=== PATIENT | male | born 1985 | race Caucasian/White ===

== ENCOUNTER 2021-04-17 00:47 | Inpatient (IN) | payer MEDICAID ==
[~2021-04-17] VITALS: Ht 172.7 cm; Wt 83.4 kg
[~2021-04-17 00:47] MED LIST: INSLAN SQ; LISI-892 PO
[2021-04-17] MEDS ORDERED: 0.9% SODIUM CHLORIDE 10 ML SYRINGE IVP PRN (01:15)
[2021-04-17] MEDS ORDERED: SODIUM CHLORIDE 0.9% 2,000 ML IV ONE (01:15)
[2021-04-17 01:17] LABS: BASOPHILS % (AUTO) 0.7 % (0.0-2.0); EOSINOPHILS % (AUTO) 1.2 % (1.0-6.0); HEMATOCRIT 39.9 % (41-53); HEMOGLOBIN 13.1 g/dL (13.5-17.5); LYMPHOCYTES # (AUTO) 1.9 K/uL (1.0-4.8); LYMPHOCYTES % (AUTO) 22.9 % (22.0-44.0); MEAN CORPUSCULAR HEMOGLOBIN 29.2 pg (26.0-34.0); MEAN CORPUSCULAR HGB CONC 32.8 G/dL (31.0-37.0); MEAN CORPUSCULAR VOLUME 89 fL (80-100); MONOCYTES # (AUTO) 0.5 K/uL (0.1-1.0); MONOCYTES % (AUTO) 6.3 % (2.0-9.0); NEUTROPHILS # (AUTO) 5.8 K/uL (1.8-7.7); NEUTROPHILS % (AUTO) 68.9 % (40.0-70.0); PLATELET COUNT (AUTO) 248 K/uL (150-450); RED BLOOD CELL COUNT(AUTO) 4.48 MIL/uL (4.50-5.90); RED CELL DISTRIBUTION WIDTH 13.4 % (11.5-14.5)
[2021-04-17 01:31] LABS: INR 0.9 (0.9-1.1); PROTHROMBIN TIME 9.3 SEC (9.4-11.6)
[2021-04-17 01:42] LABS: B-TYPE NATRIURETIC PEPTIDE 12 pg/mL (0-100); LACTIC ACID 0.8 mmol/L (0.4-2.0)
[2021-04-17] MEDS ORDERED: HydrALAZINE HCL 20 MG/ML VIAL IVP ONE (01:45)
[2021-04-17 01:50] LABS: ALANINE AMINOTRANSFERASE 19 U/L (12-78); ALBUMIN 2.2 g/dL (3.4-5.0); ALKALINE PHOSPHATASE 109 U/L (46-116); ANION GAP 4 mmol/L (8-16); ASPARTATE AMINOTRANSFERASE 7 U/L (15-37); CALCIUM, TOTAL 8.1 mg/dL (8.8-10.5); CARBON DIOXIDE 30 mmol/L (22-29); CHLORIDE 97 mmol/L (98-107); CREATINE KINASE, TOTAL ONLY 69 U/L (39-308); CREATININE 0.92 mg/dL (0.60-1.30); GLOMERULAR FILTR. RATE CALC > 60 mL/min (>60); LIPASE 138 U/L (73-393); POTASSIUM 3.8 mmol/L (3.5-5.1); SODIUM SERUM 131 mmol/L (136-145); TOTAL PROTEIN, SERUM 5.9 g/dL (6.4-8.2); UREA NITROGEN, BLOOD 25 mg/dL (7-18)
[2021-04-17 01:53] LABS: GLUCOSE,RANDOM 683 mg/dL (70-110)
[2021-04-17 02:03] LABS: BILIRUBIN,TOTAL 0.1 mg/dL (0.1-1.0)
[2021-04-17 02:18] LABS: COVID AG,FIA SOURCE NASOPHARYNGEAL
[2021-04-17 02:26] LABS: APPEARANCE,URINE CLEAR (CLEAR); BILIRUBIN,URINE NEGATIVE (NEGATIVE); GLUCOSE, URINE (UA) >=1000 mg/dL (NEGATIVE); KETONES,URINE NEGATIVE (NEGATIVE); LEUKOCYTE ESTERASE ,URINE NEGATIVE (NEGATIVE); NITRATE,URINE NEGATIVE (NEGATIVE); OCCULT BLOOD,URINE TRACE (NEGATIVE); PH,URINE 6.5 (5.0-8.0); PROTEIN,URINE SEE CONFIRM (NEGATIVE); UROBILINOGEN,URINE 0.2 mg/dL (<=1.0)
[2021-04-17 02:29] LABS: AMPHET/METH SCREEN,URINE NEGATIVE (NEGATIVE); BARBITURATE SCREEN, URINE NEGATIVE (NEGATIVE); BENZODIAZEPINES SCREEN,URINE NEGATIVE (NEGATIVE); CANNABINOID SCREEN,URINE NEGATIVE (NEGATIVE); COCAINE SCREEN,URINE NEGATIVE (NEGATIVE); METHADONE SCREEN, URINE NEGATIVE (NEGATIVE); OPIATE SCREEN,URINE NEGATIVE (NEGATIVE)
[2021-04-17 02:30] LABS: PHENCYCLIDINE SCREEN,URINE NEGATIVE (NEGATIVE)
[2021-04-17] MEDS ORDERED: MORPHINE SULFATE 4 MG/ML SYRINGE IVP ONE (02:30)
[2021-04-17 02:36] LABS: BACTERIA,URINE None Seen /HPF (None Seen); RBC,URINE None Seen /HPF (0-2); SQUAMOUS EPITHELIAL CELL,UR Few /LPF (None Seen); SULFOSALICYLIC ACID,URINE 2+ (Negative); WBC,URINE None Seen /HPF (0-5); YEAST,URINE None Seen /HPF (None Seen)
[2021-04-17] MEDS ORDERED: INSULIN REGULAR, HUMAN 100 UNITS/ML SQ ONE (02:45)
[2021-04-17] MEDS ORDERED: ONDANSETRON HCL 4 MG/2 ML VIAL IVP PRN (03:00)
[2021-04-17] MEDS ORDERED: ACETAMINOPHEN 325 MG TABLET PO PRN (03:00)
[2021-04-17] MEDS ORDERED: DEXTROSE 50%-WATER 25 GM/50 ML SYRINGE IVP PRN (03:00)
[2021-04-17 03:02] LABS: ABG BASE EXCESS -1.7 mmol/L (-2.0-3.0); ABG CARBOXYHEMOGLOBIN 0.5 % (0.0-1.5); ABG HCO3 23.6 mmol/L (22.0-26.0); ABG METHEMOGLOBIN 0.2 % (0.0-1.5); ABG OXYGEN CONTENT 18.8 mL/dL (15.0-23.0); ABG OXYGEN SATURATION 97.9 % (95.0-98.0); ABG OXYHEMOGLOBIN 97.2 % (94.0-100.0); ABG PCO2 35 mmHg (35-45); ABG PH 7.431 (7.350-7.450); ABG TOTAL HEMOGLOBIN 13.7 G/dL (12.0-18.0); O2 DEVICE,BLOOD GAS ROOM AIR (ROOM AIR); SITE, BLOOD GAS RT BRACHIAL; SOURCE, BLOOD GAS ARTERIAL; TEMPERATURE, FAHRENHEIT, BG 98.6 FAHREN (96.0-98.6)
[2021-04-17] MEDS ORDERED: LABETALOL HCL 5 MG/ML 20 ML VIAL IVP ONE (03:15)
[2021-04-17 03:18] LABS: AMPHET/METH SCREEN,URINE NEGATIVE (NEGATIVE); BARBITURATE SCREEN, URINE NEGATIVE (NEGATIVE); BENZODIAZEPINES SCREEN,URINE NEGATIVE (NEGATIVE); CANNABINOID SCREEN,URINE NEGATIVE (NEGATIVE); COCAINE SCREEN,URINE NEGATIVE (NEGATIVE); METHADONE SCREEN, URINE NEGATIVE (NEGATIVE); OPIATE SCREEN,URINE NEGATIVE (NEGATIVE)
[2021-04-17 03:19] LABS: PHENCYCLIDINE SCREEN,URINE NEGATIVE (NEGATIVE)
[2021-04-17] MEDS: INSULIN GLARGINE,HUM.REC.ANLOG 100 UNITS/ML SQ SCH ×2 (03:38→20:41)
[2021-04-17] MEDS ORDERED: INSULIN LISPRO 100 UNITS/ML SQ ONE (06:15)
[2021-04-17] MEDS ORDERED: RINGERS SOLUTION,LACTATED 1,000 ML IV ONE (06:15)
[2021-04-17 06:24] LABS: GLUCOSE,POINT OF CARE 573 MG/DL (70-110)
[2021-04-17] MEDS ORDERED: AZITHROMYCIN 500 MG/NS 250 ML IV ONE (07:00)
[2021-04-17] MEDS: CefTRIAXone 1 GM/DEXTROSE 50 ML IV SCH (07:56)
[2021-04-17 09:18] LABS: GLUCOMETER DEV NAME(LOC) ERT.5; GLUCOSE,POINT OF CARE 260 MG/DL (70-110)
[2021-04-17 11:07] VITALS: BP 147/95
[2021-04-17] MEDS: LISINOPRIL 20 MG TABLET PO SCH (11:09)
[2021-04-17] MEDS: INSULIN LISPRO 100 UNITS/ML SQ PRN ×3 (11:34→20:41)
[2021-04-17 12:25] VITALS: BP 134/87
[2021-04-17] MEDS ORDERED: INFLUENZA VIRUS VACCINE QVS 2021-22 (6MO+)/PF 60 MCG/0.5 ML SYRINGE IM. ONE (14:45)
[2021-04-17 16:15] VITALS: BP 129/84
[2021-04-17 17:23] LABS: GLUCOMETER DEV NAME(LOC) 5S.2B; GLUCOSE,POINT OF CARE 279 MG/DL (70-110)
[2021-04-17 20:02] VITALS: BP 173/102
[2021-04-17 20:13] LABS: GLUCOMETER DEV NAME(LOC) 5N.1C; GLUCOSE,POINT OF CARE 200 MG/DL (70-110)
[2021-04-17] MEDS: CARVEDILOL 6.25 MG TABLET PO SCH (20:37)
[2021-04-17 22:33] LABS: GLUCOMETER DEV NAME(LOC) 5S.2B; GLUCOSE,POINT OF CARE 345 MG/DL (70-110)
[2021-04-17 23:40] VITALS: BP 166/99
[2021-04-18 04:17] VITALS: BP 117/66
[2021-04-18 06:31] LABS: BASOPHILS % (AUTO) 0.7 % (0.0-2.0); EOSINOPHILS % (AUTO) 1.3 % (1.0-6.0); HEMOGLOBIN 13.2 g/dL (13.5-17.5); LYMPHOCYTES # (AUTO) 2.1 K/uL (1.0-4.8); LYMPHOCYTES % (AUTO) 26.2 % (22.0-44.0); MEAN CORPUSCULAR HEMOGLOBIN 29.1 pg (26.0-34.0); MEAN CORPUSCULAR HGB CONC 33.1 G/dL (31.0-37.0); MEAN CORPUSCULAR VOLUME 88 fL (80-100); MONOCYTES # (AUTO) 0.4 K/uL (0.1-1.0); MONOCYTES % (AUTO) 5.6 % (2.0-9.0); NEUTROPHILS # (AUTO) 5.2 K/uL (1.8-7.7); NEUTROPHILS % (AUTO) 66.2 % (40.0-70.0); PLATELET COUNT (AUTO) 254 K/uL (150-450); RED BLOOD CELL COUNT(AUTO) 4.54 MIL/uL (4.50-5.90); RED CELL DISTRIBUTION WIDTH 13.7 % (11.5-14.5)
[2021-04-18] MEDS: INSULIN LISPRO 100 UNITS/ML SQ PRN ×4 (06:34→21:09)
[2021-04-18 06:50] LABS: ANION GAP 7 mmol/L (8-16); CALCIUM, TOTAL 8.3 mg/dL (8.8-10.5); CARBON DIOXIDE 27 mmol/L (22-29); CHLORIDE 107 mmol/L (98-107); GLOMERULAR FILTR. RATE CALC > 60 mL/min (>60); GLUCOSE,RANDOM 264 mg/dL (70-110); POTASSIUM 3.9 mmol/L (3.5-5.1); SODIUM SERUM 141 mmol/L (136-145); UREA NITROGEN, BLOOD 12 mg/dL (7-18)
[2021-04-18 07:58] VITALS: BP 160/99
[2021-04-18] MEDS ORDERED: SODIUM CHLORIDE 0.9% 500 ML IV ONE (09:22)
[2021-04-18] MEDS: CefTRIAXone 1 GM/DEXTROSE 50 ML IV SCH (09:33)
[2021-04-18] MEDS: AZITHROMYCIN 500 MG TABLET PO SCH (09:38)
[2021-04-18] MEDS: LISINOPRIL 20 MG TABLET PO SCH (09:38)
[2021-04-18] MEDS: CARVEDILOL 6.25 MG TABLET PO SCH ×2 (09:38→21:06)
[2021-04-18] MEDS: NICOTINE 21 MG/24 HOUR PATCH TD SCH (09:39)
[2021-04-18 11:32] VITALS: BP 134/91
[2021-04-18 15:32] VITALS: BP 138/88
[2021-04-18 16:47] LABS: GLUCOMETER DEV NAME(LOC) 5S.2B; GLUCOSE,POINT OF CARE 313 MG/DL (70-110)
[2021-04-18 16:57] LABS: GLUCOMETER DEV NAME(LOC) 5N.1C; GLUCOSE,POINT OF CARE 291 MG/DL (70-110)
[2021-04-18 19:26] VITALS: BP 153/93
[2021-04-18 19:48] LABS: GLUCOMETER DEV NAME(LOC) 5N.1C; GLUCOSE,POINT OF CARE 295 MG/DL (70-110)
[2021-04-18] MEDS: INSULIN GLARGINE,HUM.REC.ANLOG 100 UNITS/ML SQ SCH (21:11)
[2021-04-18 22:24] LABS: GLUCOMETER DEV NAME(LOC) 5N.1C; GLUCOSE,POINT OF CARE 269 MG/DL (70-110)
[2021-04-19 00:35] VITALS: BP 118/65
[2021-04-19 04:47] VITALS: BP 143/91
[2021-04-19] MEDS: INSULIN LISPRO 100 UNITS/ML SQ PRN ×2 (06:30→12:49)
[2021-04-19 06:37] LABS: GLUCOMETER DEV NAME(LOC) 5N.1C; GLUCOSE,POINT OF CARE 238 MG/DL (70-110)
[2021-04-19 07:55] VITALS: BP 126/81
[2021-04-19] MEDS: LISINOPRIL 20 MG TABLET PO SCH (10:31)
[2021-04-19] MEDS: AZITHROMYCIN 500 MG TABLET PO SCH (10:31)
[2021-04-19] MEDS: CARVEDILOL 6.25 MG TABLET PO SCH (10:31)
[2021-04-19] MEDS: NICOTINE 21 MG/24 HOUR PATCH TD SCH (10:32)
[2021-04-19] MEDS: CefTRIAXone 1 GM/DEXTROSE 50 ML IV SCH (10:34)
[2021-04-19 12:20] VITALS: BP 147/91
[2021-04-19 14:02] LABS: GLUCOMETER DEV NAME(LOC) 5N.1C; GLUCOSE,POINT OF CARE 333 MG/DL (70-110)
[2021-04-19 16:25] VITALS: BP 141/87
[2021-04-19] MEDS ORDERED: CARV6 PO (16:26)
[2021-04-19] MEDS ORDERED: LISI-893 PO (16:29)
== END 2021-04-19 18:00 | disposition home or self-care (01) | DRG 199 ==
LOC: EMS 00:49 → 5S 05:15 → 5N 11:21
PROVIDERS: ADMIT Internal Medicine; ATTEND Internal Medicine
DX: I16.1 Hypertensive emergency (principal); E11.22 Type 2 diabetes mellitus with diabetic chronic kidney disease; E87.1 Hypo-osmolality and hyponatremia; E11.65 Type 2 diabetes mellitus with hyperglycemia; E78.00 Pure hypercholesterolemia, unspecified; F17.210 Nicotine dependence, cigarettes, uncomplicated; F32.A Depression, unspecified; W18.39XA Other fall on same level, initial encounter; I12.9 Hypertensive chronic kidney disease with stage 1 through stage 4 chronic kidney disease, or unspecified chronic kidney disease; N18.9 Chronic kidney disease, unspecified; Z20.822 Contact with and (suspected) exposure to COVID-19; F41.9 Anxiety disorder, unspecified; M19.90 Unspecified osteoarthritis, unspecified site; Z91.19 Patient's noncompliance with other medical treatment and regimen; Z79.4 Long term (current) use of insulin; Z79.899 Other long term (current) drug therapy; Z83.3 Family history of diabetes mellitus; Z91.14 Patient's other noncompliance with medication regimen; Y93.89 Activity, other specified; Y92.89 Other specified places as the place of occurrence of the external cause; Y99.8 Other external cause status
CPT/HCPCS: 36600; 71045; 71250; 80048; 80053; 81001; 81002; 82550; 82805; 82962; 83605; 83690; 83735; 83880; 84484; 85025; 85610; 87040; 90686; 93005; 93306; 97162; 99291; G0480; J0360; J0456; J0696; J1815; J2270; J2405; J3490; J7030; J7040; J7120; Q9967; 36415-L1; 36415-TC; G0008; U0003

== ENCOUNTER 2021-10-05 10:49 | Inpatient (IN) | payer MEDICAID ==
[~2021-10-05] VITALS: Ht 172.7 cm; Wt 80.5 kg
[~2021-10-05 10:49] MED LIST changes: +CARV6 PO; -LISI-892 PO; +LISI-893 PO
[2021-10-05 11:21] LABS: GLUCOMETER DEV NAME(LOC) ERT.5; GLUCOSE,POINT OF CARE 362 MG/DL (70-110)
[2021-10-05] MEDS ORDERED: ONDANSETRON HCL 4 MG/2 ML VIAL IVP ONE (11:30)
[2021-10-05] MEDS ORDERED: SODIUM CHLORIDE 0.9% 1,000 ML IV ONE ×2 (11:30→15:45)
[2021-10-05 11:32] LABS: GLUCOMETER DEV NAME(LOC) ERT.5; GLUCOSE,POINT OF CARE 407 MG/DL (70-110)
[2021-10-05 11:42] LABS: BASOPHILS % (AUTO) 0.6 % (0.0-2.0); HEMATOCRIT 41.2 % (41-53); HEMOGLOBIN 13.9 g/dL (13.5-17.5); LYMPHOCYTES # (AUTO) 0.9 K/uL (1.0-4.8); MEAN CORPUSCULAR HEMOGLOBIN 28.8 pg (26.0-34.0); MEAN CORPUSCULAR HGB CONC 33.7 G/dL (31.0-37.0); MEAN CORPUSCULAR VOLUME 85 fL (80-100); MONOCYTES # (AUTO) 0.3 K/uL (0.1-1.0); MONOCYTES % (AUTO) 4.6 % (2.0-9.0); NEUTROPHILS # (AUTO) 4.9 K/uL (1.8-7.7); NEUTROPHILS % (AUTO) 78.8 % (40.0-70.0); PLATELET COUNT (AUTO) 277 K/uL (150-450); RED BLOOD CELL COUNT(AUTO) 4.82 MIL/uL (4.50-5.90); RED CELL DISTRIBUTION WIDTH 13.7 % (11.5-14.5)
[2021-10-05 11:49] LABS: COVID AG,FIA SOURCE NASOPHARYNGEAL
[2021-10-05 11:52] LABS: APPEARANCE,URINE CLEAR (CLEAR); BILIRUBIN,URINE NEGATIVE (NEGATIVE); GLUCOSE, URINE (UA) >=1000 mg/dL (NEGATIVE); KETONES,URINE NEGATIVE (NEGATIVE); LEUKOCYTE ESTERASE ,URINE NEGATIVE (NEGATIVE); NITRATE,URINE NEGATIVE (NEGATIVE); OCCULT BLOOD,URINE SMALL (NEGATIVE); PH,URINE 6.5 (5.0-8.0); PROTEIN,URINE 300-600,SEE CONFIRM mg/dL (NEGATIVE); SPECIFIC GRAVITIY, URINE 1.025 (1.003-1.030); UROBILINOGEN,URINE <=1.0 mg/dL (<=1.0)
[2021-10-05 11:58] LABS: SULFOSALICYLIC ACID,URINE 3+ (Negative)
[2021-10-05 11:59] LABS: BACTERIA,URINE None Seen /HPF (None Seen); RBC,URINE 0-2 /HPF (0-2); WBC,URINE None Seen /HPF (0-5)
[2021-10-05 12:05] LABS: ALANINE AMINOTRANSFERASE 20 U/L (12-78); ALBUMIN 2.1 g/dL (3.4-5.0); ALKALINE PHOSPHATASE 104 U/L (46-116); ANION GAP 7 mmol/L (8-16); ASPARTATE AMINOTRANSFERASE 12 U/L (15-37); BILIRUBIN,TOTAL 0.2 mg/dL (0.1-1.0); CALCIUM, TOTAL 8.4 mg/dL (8.8-10.5); CARBON DIOXIDE 27 mmol/L (22-29); CHLORIDE 100 mmol/L (98-107); CREATINE KINASE, TOTAL ONLY 71 U/L (39-308); CREATININE 0.87 mg/dL (0.60-1.30); GLOMERULAR FILTR. RATE CALC > 60 mL/min (>60); LIPASE 181 U/L (73-393); POTASSIUM 5.5 mmol/L (3.5-5.1); SODIUM SERUM 134 mmol/L (136-145); TOTAL PROTEIN, SERUM 6.2 g/dL (6.4-8.2); UREA NITROGEN, BLOOD 20 mg/dL (7-18)
[2021-10-05 12:06] LABS: ACETONE,BLOOD NEGATIVE (NEGATIVE)
[2021-10-05 12:07] LABS: GLUCOSE,RANDOM 451 mg/dL (70-110)
[2021-10-05 12:12] LABS: B-TYPE NATRIURETIC PEPTIDE 25 pg/mL (0-100)
[2021-10-05] MEDS ORDERED: INSULIN REGULAR, HUMAN 100 UNITS/ML IVP ONE (12:15)
[2021-10-05 13:31] LABS: GLUCOMETER DEV NAME(LOC) ERT.5; GLUCOSE,POINT OF CARE 279 MG/DL (70-110)
[2021-10-05 13:40] LABS: ANION GAP 7 mmol/L (8-16); CALCIUM, TOTAL 8.3 mg/dL (8.8-10.5); CARBON DIOXIDE 25 mmol/L (22-29); CHLORIDE 104 mmol/L (98-107); CREATININE 0.76 mg/dL (0.60-1.30); GLOMERULAR FILTR. RATE CALC > 60 mL/min (>60); GLUCOSE,RANDOM 287 mg/dL (70-110); POTASSIUM 4.5 mmol/L (3.5-5.1); SODIUM SERUM 136 mmol/L (136-145); UREA NITROGEN, BLOOD 19 mg/dL (7-18)
[2021-10-05] MEDS ORDERED: ACETAMINOPHEN 325 MG TABLET PO PRN ×2 (14:00→15:45)
[2021-10-05] MEDS ORDERED: ONDANSETRON HCL 4 MG/2 ML VIAL IVP PRN ×2 (14:00→15:45)
[2021-10-05] MEDS ORDERED: 0.9% SODIUM CHLORIDE 10 ML SYRINGE IVP PRN (14:00)
[2021-10-05] MEDS ORDERED: CloNIDine HCL 0.1 MG TABLET PO PRN (15:45)
[2021-10-05] MEDS ORDERED: DEXTROSE 50%-WATER 25 GM/50 ML SYRINGE IVP PRN (15:45)
[2021-10-05] MEDS ORDERED: ZOLPIDEM TARTRATE 5 MG TABLET PO PRN (15:45)
[2021-10-05 15:55] LABS: GLUCOMETER DEV NAME(LOC) ERT.5; GLUCOSE,POINT OF CARE 238 MG/DL (70-110)
[2021-10-05] MEDS: INSULIN LISPRO 100 UNITS/ML SQ PRN (18:00)
[2021-10-05 18:06] LABS: GLUCOMETER DEV NAME(LOC) ERT.5; GLUCOSE,POINT OF CARE 294 MG/DL (70-110)
[2021-10-05 18:56] LABS: GLUCOMETER DEV NAME(LOC) ERT.5; GLUCOSE,POINT OF CARE 302 MG/DL (70-110)
[2021-10-05 20:16] VITALS: BP 188/104
[2021-10-05] MEDS ORDERED: DOCUSATE SODIUM 100 MG CAPSULE PO SCH (21:00)
[2021-10-05] MEDS ORDERED: INSULIN GLARGINE,HUM.REC.ANLOG 100 UNITS/ML SQ SCH (21:00)
[2021-10-06 00:11] VITALS: BP 115/70
[2021-10-06 04:36] VITALS: BP 140/82
[2021-10-06] MEDS: INSULIN LISPRO 100 UNITS/ML SQ PRN (05:49)
[2021-10-06 06:01] LABS: GLUCOMETER DEV NAME(LOC) 5S.1B; GLUCOSE,POINT OF CARE 254 MG/DL (70-110)
[2021-10-06 06:01] LABS: GLUCOMETER DEV NAME(LOC) 5S.2B; GLUCOSE,POINT OF CARE 249 MG/DL (70-110)
[2021-10-06 07:41] LABS: BASOPHILS % (AUTO) 0.7 % (0.0-2.0); EOSINOPHILS % (AUTO) 2.2 % (1.0-6.0); HEMATOCRIT 38.9 % (41-53); HEMOGLOBIN 13.1 g/dL (13.5-17.5); LYMPHOCYTES # (AUTO) 1.7 K/uL (1.0-4.8); LYMPHOCYTES % (AUTO) 30.7 % (22.0-44.0); MEAN CORPUSCULAR HEMOGLOBIN 28.9 pg (26.0-34.0); MEAN CORPUSCULAR HGB CONC 33.8 G/dL (31.0-37.0); MEAN CORPUSCULAR VOLUME 86 fL (80-100); MONOCYTES # (AUTO) 0.3 K/uL (0.1-1.0); MONOCYTES % (AUTO) 5.6 % (2.0-9.0); NEUTROPHILS # (AUTO) 3.4 K/uL (1.8-7.7); NEUTROPHILS % (AUTO) 60.8 % (40.0-70.0); PLATELET COUNT (AUTO) 259 K/uL (150-450); RED BLOOD CELL COUNT(AUTO) 4.55 MIL/uL (4.50-5.90); RED CELL DISTRIBUTION WIDTH 14.1 % (11.5-14.5)
[2021-10-06 07:51] VITALS: BP 116/72
[2021-10-06 07:51] LABS: ALANINE AMINOTRANSFERASE 17 U/L (12-78); ALBUMIN 1.8 g/dL (3.4-5.0); ALKALINE PHOSPHATASE 86 U/L (46-116); ANION GAP 8 mmol/L (8-16); ASPARTATE AMINOTRANSFERASE 10 U/L (15-37); BILIRUBIN,TOTAL 0.2 mg/dL (0.1-1.0); CALCIUM, TOTAL 8.1 mg/dL (8.8-10.5); CARBON DIOXIDE 25 mmol/L (22-29); CHLORIDE 102 mmol/L (98-107); CREATININE 0.69 mg/dL (0.60-1.30); GLOMERULAR FILTR. RATE CALC > 60 mL/min (>60); GLUCOSE,RANDOM 271 mg/dL (70-110); SODIUM SERUM 135 mmol/L (136-145); TOTAL PROTEIN, SERUM 5.5 g/dL (6.4-8.2); UREA NITROGEN, BLOOD 18 mg/dL (7-18)
[2021-10-06] MEDS ORDERED: FAMOTIDINE 20 MG TABLET PO SCH (09:00)
== END 2021-10-06 09:22 | disposition left against medical advice (07) | DRG 52 ==
LOC: EMS 10:49 → 5S 15:38
PROVIDERS: ADMIT Internal Medicine; ATTEND Internal Medicine
DX: G92.9 Unspecified toxic encephalopathy (principal); E11.65 Type 2 diabetes mellitus with hyperglycemia; E78.5 Hyperlipidemia, unspecified; F15.90 Other stimulant use, unspecified, uncomplicated; E87.5 Hyperkalemia; I10 Essential (primary) hypertension; F17.210 Nicotine dependence, cigarettes, uncomplicated; Z53.29 Procedure and treatment not carried out because of patient's decision for other reasons; Z20.822 Contact with and (suspected) exposure to COVID-19; E78.00 Pure hypercholesterolemia, unspecified; F99 Mental disorder, not otherwise specified; Z83.3 Family history of diabetes mellitus; Z91.14 Patient's other noncompliance with medication regimen; Z71.6 Tobacco abuse counseling
CPT/HCPCS: 70450; 71045; 72125; 80048; 80053; 81001; 81002; 82009; 82550; 82962; 83690; 83880; 84484; 85025; 93005; 99285; J1815; J2405; 36415-L1; 36415-TC